=== PATIENT | male | born 1980 | race Native Hawaiian/Other Pacific Islander ===

== ENCOUNTER 2018-07-08 07:23 | Emergency (ER) | payer OTHER ==
[2018-07-08 07:36] VITALS: RESP 18; O2SAT 100
--- NOTE | 2018-07-08 07:48 | C.PDOC ---
History Of Present Illness Patient is a 38 year old male who presents to the ED c/o a cough with a mild sore throat for the past one to two weeks. Patient states that he noticed bloody sputum yesterday. He denies any fevers, chills, night sweats, CP, SOB, nausea, vomiting, or recent travels. Time Seen by Provider: 07/08/18 07:30 Chief Complaint (Nursing): Cough, Cold, Congestion History Per: Patient History/Exam Limitations: no limitations Onset/Duration Of Symptoms: Days (one to two weeks) Current Symptoms Are (Timing): Still Present Associated Symptoms: Sore Throat, Cough, Sputum (bloody ). denies: Fever, Chills, Vomiting, Diarrhea Recent travel outside of the [place]: No Additional History Per: Patient Past Medical History Reviewed: Historical Data, Nursing Documentation, Vital Signs Vital Signs: Last Vital Signs Temp 97.9 F 07/08/18 07:28 Pulse 86 07/08/18 07:28 Resp 18 07/08/18 07:28 BP 120/80 07/08/18 07:28 Pulse Ox 100 07/08/18 07:28 Primary Care Provider: Non [facility] Provider, - Medical History PMH: No Chronic Diseases Surgical History: Hernia Repair Family History: States: Unknown Family Hx - Social History Hx Alcohol Use: Yes Hx Substance Use: No - Immunization History Hx Tetanus Toxoid Vaccination: No Hx Influenza Vaccination: No Hx Pneumococcal Vaccination: No Review Of Systems Except As Marked, All Systems Reviewed And Found Negative. Constitutional: Negative for: Fever, Chills, Sweats ENT: Positive for: Throat Pain Cardiovascular: Negative for: Chest Pain Respiratory: Positive for: Cough (with blood sputum ). Negative for: Shortness of Breath Gastrointestinal: Negative for: Nausea, Vomiting, Abdominal Pain, Diarrhea Physical Exam - Physical Exam Appears: Non-toxic, No Acute Distress Skin: Warm, Dry Head: Atraumatic, Normacephalic Oral Mucosa: Moist Throat: Erythema (pharynx) Neck: Normal ROM, Supple Chest: Symmetrical, No Deformity Cardiovascular: Rhythm Regular, No Murmur Respiratory: Normal Breath Sounds, No Rales, No Rhonchi, No Wheezing Gastrointestinal/Abdominal: Soft, No Tenderness Extremity: Normal ROM Neurological/Psych: Oriented x3, Normal Speech ED Course And Treatment O2 Sat by Pulse Oximetry: 100 (on RA) Pulse Ox Interpretation: Normal Medical Decision Making Medical Decision Making: Plan: CXR Serology Rapid Strep Serology Influenza flu pos cxr neg as read by me. stable for dc lungs cta. no travel hx to suggest tb flu pos Disposition - Disposition Referrals: [facility] [Outside] [facility] [Outside] Disposition: HOME/ ROUTINE Disposition Time: 09:00 Condition: STABLE Additional Instructions: return to er with worsening. you should f/u with your doctor/clinc in next 1- 2 days Prescriptions: Benzonatate [Tessalon Perle] 100 mg PO TID PRN #15 capsule PRN Reason: Cough Oseltamivir Phosphate [Tamiflu] 75 mg PO BID #10 capsule Instructions: Coughing up Blood, Influenza (ED) Forms: [employer] (B[place]ivian) - Clinical Impression Clinical Impression: Influenza, Hemoptysis - Scribe Statement The provider has reviewed the documentation as recorded by the Scribramses Sneed All medical record entries made by the Scribe were at my direction and personally dictated by me. I have reviewed the chart and agree that the record accurately reflects my personal performance of the history, physical exam, medical decision making, and the department course for this patient. I have also personally directed, reviewed, and agree with the discharge instructions and disposition.
[2018-07-08 08:45] LABS: INFLUENZA A B POS FOR INFLUENZA A (NEGATIVE)
[2018-07-08 09:04] VITALS: BP 128/87; PULSE 76; TEMP 97.6
--- NOTE | 2018-07-08 10:45 | RAD ---
Chest x-ray two views HISTORY: Cough. COMPARISON: None available. Findings: No focal infiltrate or effusion. Heart size within normal limits. Impression: No focal infiltrate or effusion.
== END 2018-07-08 09:12 | disposition home or self-care (01) ==
LOC: C.ER 07:23
DX: J11.1 Influenza due to unidentified influenza virus with other respiratory manifestations (principal); R04.2 Hemoptysis